=== PATIENT | male | born 1985 | race Two or more races ===

== ENCOUNTER 2024-06-03 20:34 | Emergency (ER) | payer MEDICAID, OTHER ==
[~2024-06-03] VITALS: Ht 175.3 cm; Wt 74.3 kg
--- NOTE | 2024-06-03 21:54 | DVH ---
EXAM: XY R HAND 3 VIEW XRAY CLINICAL HISTORY: INDEX FINGURE INJURY COMPARISON: None TECHNIQUE: XY R HAND 3 VIEW XRAY Findings/Impression: 3 views of the right hand. There is no evidence of an acute fracture, dislocation, blastic, or lytic lesions. No radiopaque foreign bodies. No superficial soft tissue abnormalities.
[2024-06-03] MEDS: LIDOCAINE 1% HCL (LOCAL ANESTH.) INJ 20ML MDV ID ONE (22:35)
[2024-06-03] MEDS ORDERED: AUG875T PO (22:46)
--- NOTE | 2024-06-03 22:46 | ED.PDOC ---
HPI Comments PT PRESENTED TO ED FOR RIGHT INDEX FINGER LACERACTION, APPROX. 1/2 INCH IN LENGTH WITH FATTY TISSUE EXPOSED. 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 BLEEDING CONTROLLED IN TRIAGE. Chief Complaint: Laceration Time Seen by MD: 20:45 Reviewed Notes: Nurses Notes, Medications, Allergies Allergies: Coded Allergies: No Known Drug Allergy (Verified Allergy, Unknown, 06/03/24) Home Meds Active Scripts Amoxicillin & Pot Clavulanate (AUGMENTIN TABLET) 875 Mg Tb, 875 MG PO BID for 7 Days, #14 TAB Prov:YARIEL CURRIE DUST COLLECTOR 06/03/24 Information Source: Patient Mode of Arrival: Ambulatory Complexity: Intermediate Laceration Length (cm): 2 Past Medical History PAST MEDICAL HISTORY: Denies Surgical History: Denies all surgeries Family History Family History: Reviewed,noncontributory to illness Social History Smoker: Non-Smoker Alcohol: Denies ETOH Use Drugs: Denies Drug Use Constitutional: denies: chills, diaphoresis, fatigue, fever, malaise, sweats, weakness, others EENTM: denies: blurred vision, double vision, ear bleeding, ear discharge, ear drainage, ear pain, ear ringing, eye pain, eye redness, hearing loss, mouth pain, mouth swelling, nasal discharge, nose bleeding, nose congestion, nose pain, photophobia, tearing, throat pain, throat swelling, voice changes, others Respiratory: denies: cough, hemoptysis, orthopnea, SOB at rest, shortness of breath, SOB with excertion, stridor, wheezing, others Cardiovascular: denies: chest pain, dizzy spells, diaphoresis, Dyspnea on exertion, edema, irregular heart beat, left arm pain, lightheadedness, palpitations, PND, syncope, others Gastrointestinal: denies: abdomen distended, abdominal pain, blood streaked bowels, constipated, diarrhea, dysphagia, difficulty swallowing, hematemesis, melena, nausea, poor appetite, poor fluid intake, rectal bleeding, rectal pain, vomiting, others Genitourinary: denies: burning, dysuria, flank pain, frequency, hematuria, incontinence, penile discharge, penile sore, pain, testicle pain, testicle swelling, urgency, others Neurological: denies: dizziness, fainting, headache, left sided numbness, left sided weakness, numbness, paresthesia, pre-existing deficit, right sided numbness, right sided weakness, seizure, speech problems, tingling, tremors, weakness, others Musculoskeletal: denies: back pain, gout, joint pain, joint swelling, muscle pain, muscle stiffness, neck pain, others Integumetry: reports: laceration (LEFT HAND PALM AND INDEX FINGER); denies: bruises, change in color, change in hair/nails, dryness, lesions, lumps, rash, wounds, others Allergic/Immunocompromised: denies: Difficulty Healing, Frequent Infections, Hives, Itching, others Hematologic/Lymphatic: denies: anemia, blood clots, easy bleeding, easy bruising, swollen glands, others Endocrine: denies: excessive hunger, excessive sweating, excessive thirst, excessive urination, flushing, intolerance to cold, intolerance to heat, unexplained weight gain, unexplained weight loss, others Psychiatric: denies: anxiety, bipolar disorder, depression, hopeless, panic disorder, schizophrenia, sleepless, suicidal, others Physical Exam General Appearance: No Apparent Distress, Normal HEENT: Pharynx Normal Neck: Full Range of Motion, Non-Tender Respiratory: Lungs Clear, No Respiratory Distress, Normal Breath Sounds Cardiovascular: No Murmur, Normal Peripheral Pulses, Regular Rate/Rhythm Breast Exam: Deferred Gastrointestinal: Non Tender, Soft Genitalia: Deferred Pelvic: Deferred Rectal: Deferred Extremities: Normal capillary refill, Normal inspection, Normal range of motion, Non-tender, No pedal edema Musculoskeletal : Apperance: Normal Neurologic: Alert, apprentice cosmetologist II-XII nml as Tested, No Motor Deficits, Normal Affect, Normal Mood, No Sensory Deficits Cerebellar Function: Normal Reflexes: Normal Skin: Dry, Lacerations (2CM LAC TO LEFT HAND PALM EXTENDING INTO PROXIMAL INDEX FINGER), Normal Color, Warm Lymphatic: No Adenopathy Was a procedure done? Was a procedure done?: Yes Sedation Sedation?: No Informed consent obtained: Yes Laceration Repair : Location LEFT PALM INDEX FINGER Length 2.O CM Anesthetic: Lidocaine, Without epi Laceration Repair Prep: Saline Laceration Repair Wound Comple: epidermis/dermis repair Laceration Repair: Number of sutures (9), Simple Informed consent obtained: Yes Risks, benefits, and alternati: Yes Notes PATIENT TOLERATED WELL WITH MINIMAL BLOOD LOSS Differential diagnosis Generic Laceration: Fracture, Neurovascular Injury X-Ray, Labs, Meds, VS Vital Signs Date Time Temp Pulse Resp B/P (MAP) Pulse Ox O2 Delivery O2 Flow Rate FiO2 06/03/24 23:05 75 18 97 Room Air 06/03/24 23:00 97.7 75 18 128/76 (93) 97 97.7 06/03/24 21:17 98.0 88 18 157/102 (120) 98 X-Ray, Labs, Meds, VS Comment SEE PROCEDURE NOTE. . SCRIPT PROPHYLACTIC ANTIBIOTICS. LACERATION DRESSED D. ADVISED TO FOLLOW UP WITH PCP 1-2 DAYS FOR WOUND RE-EVALUATION SUTURE REMOVAL IN 5-7 DAYS [id number] TYLENOL OR MOTRIN NEEDED FOR THE PAIN PER LABELED DOSING INSTRUCTIONS MONITOR FOR SIGNS AND SYMPTOMS OF INFECTION AND UNCONTROLLED BLEEDING RETURN TO THE ER IMMEDIATELY. PATIENT INDICATES UNDERSTANDING AND AGREES WITH DISCHARGE PLAN OF CARE. Time of 1ST Reevaluation: 22:40 Reevaluation 1ST: Improved Patient Education/Counseling: Diagnosis, Treatment, Prognosis, Need For Follow Up Family Education/Counseling: Diagnosis, Treatment, Prognosis, Need For Follow Up Departure 1 Departure Time of Disposition: 22:45 Impression: Primary Impression: Finger laceration Qualified Codes: S61.210A - Laceration without foreign body of right index finger without damage to nail, initial encounter Disposition: HOME / SELF CARE / HOMELESS Condition: Stable e-Prescriptions Amoxicillin & Pot Clavulanate (AUGMENTIN TABLET) 875 Mg Tb 875 MG PO BID for 7 Days, #14 TAB Prov: YARIEL CURRIE 06/03/24 Discharged With: Spouse Critical Care Note Critical Care Time?: No Stability Stability form required: YARIEL Fallon Jun 03, 2024 22:46
[2024-06-03 23:00] VITALS: BP 128/76; TEMP 97.7
[2024-06-03 23:05] VITALS: PULSE 75; RESP 18; O2SAT 97
== END 2024-06-03 23:10 | disposition home or self-care (01) ==
LOC: ER 20:34
DX: S61.210A Laceration without foreign body of right index finger without damage to nail, initial encounter (principal); W26.8XXA Contact with other sharp object(s), not elsewhere classified, initial encounter; Y93.89 Activity, other specified; Y92.89 Other specified places as the place of occurrence of the external cause; Y99.8 Other external cause status
CPT/HCPCS: 12001; 73130; 99283; J2003